=== PATIENT | female | born 1990 | race African-American/Black ===

== ENCOUNTER 2016-09-21 13:15 | Inpatient (IN) | payer OTHER ==
[2016-09-21] MEDS ORDERED: ELECTROLYTE-148 SOLN 1,000 ML IV SCH ×2 (13:40→14:10)
[2016-09-21] MEDS ORDERED: CITRIC ACID/SODIUM CITRATE 30 ML UNIT-DOSE CUP PO ONE (13:40)
[2016-09-21] MEDS ORDERED: ONDANSETRON 4 MG/2 ML VIAL IVPB PRN (14:03)
[2016-09-21 14:13] VITALS: BMI 26.2
[2016-09-21] MEDS ORDERED: DEXTROSE 5%-LACTATED RINGERS 1,000 ML IV SCH (14:30)
--- NOTE | 2016-09-21 14:40 | HP ---
Past Medical History - Primary Care Physician PCP:: Lanre Flanagan - Admission Chief Complaint: 26yo P1 with at EGA 39w2d and previous C/S admitted for repeat C/S History of Present Illness: Prior C/S Uncomplicated GBS negative History Source: Patient, Medical Record Limitations to Obtaining History: No Limitations - Past Medical History PLANT SENIOR MANAGER: No: Alzheimer's, CVA, Dementia, Migraine, Multiple Sclerosis, Peripheral Neuropathy, Parkinson's, Seizure, Syncope, TIA, Vertigo, Other Cardiovascular: No: AFIB, Aneurysm, Aortic Insufficiency, Aortic Stenosis, CAD, CHF, Deep Vein Thrombosis, HTN, Hyperlipdemia, SD, Mitral Insufficiency, Mitral Stenosis, Murmur, Pulmonary Hypertension, Other Pulmonary: No: Asthma, Bronchitis, Cancer, COPD, O2 Dependent, Pneumonia, Previously Intubated, Pulmonary Embolus, Pulmonary Fibrosis, Sleep Apnea, Other Gastrointestinal: No: Ascites, Cancer, Constipation, Crohn's Disease, Diverticulitis, Diverticulosis, Esophageal Varices, Gastritis, GERD, GI Bleed, Hemorrhoids, Hiatal Hernia, Inflamatory Bowel Disease, Irritable Bowel Disease, Pancreatitis, Peptic Ulcer Disease, Ulcerative Colitis, Other Hepatobiliary: No: Cirrhosis, Cholelithiasis, Cholecystitis, Choledocholithiasis , Hepatitis A, Hepatitis B, Hepatitis C, Other Renal/: No: Renal Failure, Renal Inusuff, BPH, Cancer, Hematuria, Hemodialysis , Neurogenic Bladder, Renal Calculi, UTI, Other Reproductive: No: Ectopic , Endometriosis, Fibroids, PID, Polycystic Ovary Syndrome, Postmenopausal, Other ...: 2 ...Para: 1 ...Term: 1 ...LMP: 01/01/16 ...EDC by Eligio: 09/26/16 Heme/Onc: No: Anemia, B12 Deficiency, Bleeding Disorder, Cancer, Current Chemotherapy, Current Radiation Therapy, Hemochromatosis, Hypercoaguable State, Myeloproliferative Synd, Sickle Cell Disease, Sickle Cell Trait, Thrombocytopenia, Other Infectious Disease: No: AIDS, C-Diff, Herpes Zoster, HIV, MRSA, STD's, Tuberculosis, VREF, Other Psych: No: Addictions, Anxiety, Bipolar, Depression, Panic, Psychosis, Schizophrenia, Other Musculoskeletal: No: Bursitis, Chronic low back pain, Hemiparesis, Hemiplegia, Osteoarthritis, Paraplegia, Other Rheumatology: No: Fibromyalgia, Gout, Lupus, Rheumatoid Arthritis, Sarcoidosis, Vasculitis, Other ENT: No: Allergic Rhinitis, Sinusitis, Other Endocrine: No: Mora's Disease, Cazadero's Disease, Diabetes Insipidus, Diabetes Mellitus, Hyperparathyroidism, Hyperthyroidism, Hypothyroidism, Osteopenia, SIADH, Other Dermatology: No: Basal Cell, Cellulitis, Eczema, Melanoma, Psoriasis, Squamous Cell, Other - Past Surgical History Past Surgical History: Yes: Hx Myomectomy: No Hx Transabdominal Cerclage: No - Smoking History Smoking history: Never smoked - Alcohol/Substance Use Hx Alcohol Use: No History of Substance Use: reports: None - Social History Usual Living Arrangement: Yes: With Significant Other, With Child ADL: Independent History of Recent Travel: No Home Medications - Allergies Allergies/Adverse Reactions: Allergies Allergy/AdvReac Type Severity Reaction Status Date / Time No Known Allergies Allergy Verified 09/21/16 13:41 - Home Medications Home Medications: Ambulatory Orders NK [No Known Home Medication] 09/21/16 Family Disease History - Family Disease History Family History: Denies Review of Systems - Review of Systems Constitutional: reports: No Symptoms Eyes: reports: No Symptoms HENT: reports: No Symptoms Neck: reports: No Symptoms Cardiovascular: reports: No Symptoms Respiratory: reports: No Symptoms Gastrointestinal: reports: No Symptoms Genitourinary: reports: No Symptoms Breasts: reports: No Symptoms Reported Musculoskeletal: reports: No Symptoms Integumentary: reports: No Symptoms Neurological: reports: No Symptoms Endocrine: reports: No Symptoms Hematology/Lymphatic: reports: No Symptoms Psychiatric: reports: No Symptoms Pain Intensity: 0 Physical Exam - Maternity Vital Signs: Vital Signs Temperature 98.5 F 09/21/16 14:03 Pulse Rate 83 09/21/16 14:03 Respiratory Rate 20 09/21/16 14:03 Blood Pressure 128/64 09/21/16 14:03 O2 Sat by Pulse Oximetry (%) Constitutional: Yes: Well Nourished, No Distress, Calm Eyes: Yes: WNL, Conjunctiva Clear HENT: Yes: WNL, Atraumatic, Normocephalic Neck: Yes: WNL, Supple, Trachea Midline Cardiovascular: Yes: WNL, Regular Rate and Rhythm Lungs: Clear to auscultation, Normal air movement Breast(s): Yes: WNL - Abdominal Exam/OB Fundal Height: 38 Number of Fetuses: Single Presentation: Vertex Contractions: Yes Regularity: Irritability Intensity: Unaware Monitor Mode: External Heart Rate (range): 130 Heart Rate Location: Midline Category: I Accelerations: None - Vaginal Exam/OB Vaginal Bleediing: No Speculum Exam: No Presentation: Vertex/Position - Physical Exam Musculoskeletal: Yes: WNL Extremities: Yes: WNL Edema: No Integumentary: Yes: WNL Deep Tendon Reflex Grade: Normal +2 ...Motor Strength: WNL Psychiatric: Yes: WNL, Alert, Oriented Hemorrhage Risk Assessment - Risk Factors Medium Risk Factors: Yes: Prior , uterine surgery,or multiple laparotomies, None High Risk Factors: Yes: None Risk Score: 2 Risk Level: High Risk Imaging - Results Ultrasound: Report Reviewed Assessment/Plan 26yo P1 admitted for repeat C/S. We discussed the risks and benefits of C/S at length, including but not limited to scarring, pain, bleeding, infection, injury to underlying organs and structures, need for additional surgery to repair/treat any problems or complications, complications/injuries, etc. The pt verbalized her understanding and requested to proceed with surgery.
[2016-09-21] MEDS ORDERED: TUBERCULIN PPD 5 TU/0.1ML SYRINGE (IN PATIENT USE ONLY) ID ONE (15:00)
[2016-09-21 15:43] LABS: ARTERIAL BLD GAS O2 SATURATION 30.2 % (90-98.9); ARTERIAL BLOOD GAS BASE EXCESS -0.8 meq/l (-2-2); ARTERIAL BLOOD GAS pH 7.33 (7.35-7.45)
[2016-09-21 15:44] LABS: ARTERIAL BLD GAS O2 SATURATION 19.2 % (90-98.9); ARTERIAL BLOOD GAS BASE EXCESS -1.7 meq/l (-2-2); ARTERIAL BLOOD GAS HCO3 25.6 meq/L (22-26); ARTERIAL BLOOD GAS pH 7.27 (7.35-7.45)
[2016-09-21 15:46] LABS: LPM/O2% 21; PT. ON O2? NO; TYPE OF O2 ROOM AIR
[2016-09-21 15:48] LABS: ARTERIAL BLOOD GAS PO2 17.7 mmHg (80-100)
[2016-09-21 15:49] LABS: PT. ON O2? NO
[2016-09-21 15:50] LABS: LPM/O2% 21; TYPE OF O2 ROOM AIR
[2016-09-21] MEDS ORDERED: BENZOCAINE 28 GM HEMORRHOIDAL OINTMENT TP PRN (16:01)
[2016-09-21] MEDS ORDERED: BENZOCAINE 20% 57 GM BOTTLE TP PRN (16:01)
[2016-09-21] MEDS ORDERED: METHYLERGONOVINE MALEATE 0.2 MG/1 ML AMP IM PRN (16:01)
[2016-09-21] MEDS ORDERED: WITCH HAZEL 50% (TUCKS) 40 PAD/JAR PAD TP PRN (16:01)
[2016-09-21] MEDS ORDERED: IBUPROFEN 600 MG TABLET (FP) PO PRN (16:01)
--- NOTE | 2016-09-21 16:07 | OP ---
Operative Note - Note: Operative Date: 09/21/16 Pre-Operative Diagnosis: at EGA 39w2d. Prior C/S Operation: Repeat LT C/S Findings: live baby boy in vtx presentation, no meconium in amniotic fluids. 7 and 9. Normal uterus tubes, and ovaries. Post-Operative Diagnosis: Same as Pre-op Surgeon: Lanre Flanagan Jumpbasting Facing Baster: Hilary Melgar Anesthesiologist/COMMUNITY REINVESTMENT ACT OFFICER: Kate Napier Anesthesia: Spinal Specimens Removed: Placenta, keloid scar Estimated Blood Loss (mls): 700 Drains & Tubes with Location: Sebastian Cath Drains, Volume Out (mls): 600 Blood Volume Replaced (mls): 0 Fluid Volume Replaced (mls): 2,000 Operative Report Dictated: Yes
[2016-09-21] MEDS: IBUPROFEN 800 MG/8 ML IJ IVPB PRN (16:53)
[2016-09-21] MEDS ORDERED: D5W-LR W/ 20 UNITS OXYTOCIN 1,000 ML IV SCH (17:30)
[2016-09-22] MEDS: IBUPROFEN 800 MG/8 ML IJ IVPB PRN (06:20)
[2016-09-22 09:00] LABS: BASOPHIL 0.3 % (0-2.0); EOSINOPHIL 1.4 % (0-4.5); MCH 31.3 pg (25.7-33.7); MCHC 34.6 g/dl (32.0-36.0); MEAN CELL VOLUME 90.5 fl (80-96); MEAN PLT VOLUME 8.4 fl (7.5-11.1); PLATELET COUNT 282 K/MM3 (134-434); RDW 12.6 % (11.6-15.6); WHITE BLOOD COUNT 11.9 K/mm3 (4.0-10.0)
--- NOTE | 2016-09-22 09:47 | PN ---
Post Progress Note - Subjective Subjective: Patient without acute complaints. Reports tolerating clears without nausea or vomiting. To chair this AM dom JESUS'd, no voiding yet Desires to breastfeed No flatus yet Post Day: 1 Type of Delivery: Repeat C/S Vital Signs: Vital Signs Temperature 98.8 F 09/22/16 08:00 Pulse Rate 66 09/22/16 08:00 Respiratory Rate 18 09/22/16 08:00 Blood Pressure 115/74 09/22/16 08:00 O2 Sat by Pulse Oximetry (%) Breast Exam: Yes: Engorged Uterus: Yes: Fundus Firm, Fundus below umbilicus Incision: Yes: Dressing dry and intact Abdomen/GI: Yes: Abdomen soft, Tolerating PO. No: Tender, Passing flatus Lochia: Yes: Serosa Lochia, amount: Moderate Extremities: Yes: Calves non-tender. No: Edema Activity: Ambulating - Labs Labs: CBC WBC 11.9 K/mm3 (4.0-10.0) H D 09/22/16 08:00 RBC 3.45 M/mm3 (3.60-5.2) L 09/22/16 08:00 Hgb 10.8 GM/dL (10.7-15.3) 09/22/16 08:00 Hct 31.3 % (32.4-45.2) L 09/22/16 08:00 MCV 90.5 fl (80-96) 09/22/16 08:00 MCH 31.3 pg (25.7-33.7) 09/22/16 08:00 MCHC 34.6 g/dl (32.0-36.0) 09/22/16 08:00 RDW 12.6 % (11.6-15.6) 09/22/16 08:00 Plt Count 282 K/MM3 (134-434) 09/22/16 08:00 MPV 8.4 fl (7.5-11.1) 09/22/16 08:00 Neutrophils % 80.0 % (42.8-82.8) 09/22/16 08:00 Lymphocytes % 8.2 % (8-40) D 09/22/16 08:00 Monocytes % 10.1 % (3.8-10.2) 09/22/16 08:00 Eosinophils % 1.4 % (0-4.5) 09/22/16 08:00 Basophils % 0.3 % (0-2.0) 09/22/16 08:00 Assessment/Plan 26 yo POD # 1 s/p repeat CD, afebrile, vital signs stable, doing well 1. Continue routine postoperative care. 2. AM CBC stable 3. Rh positive status, no rhogam indicated. 4. Encourage ambulation and incentive spirometer use 5. Continue oral pain medication 6. Anticipate discharge home postoperative day #3 or #4
--- NOTE | 2016-09-22 10:10 | OP ---
DATE OF OPERATION: 09/21/2016 PREOPERATIVE DIAGNOSIS: at estimated gestational age of 39 weeks and 2 days, previous section. POSTOPERATIVE DIAGNOSIS: at estimated gestational age of 39 weeks and 2 days, previous section, delivered. PROCEDURE: Repeat low transverse section via Pfannenstiel skin incision and revision of the old keloid scar. SURGEON: Lanre Flanagan MD ABORIGINAL EDUCATION TEACHER: Hilary Melgar MD ANESTHESIOLOGIST: Kate Napier MD ANESTHESIA: Spinal. COMPLICATIONS: None. ESTIMATED BLOOD LOSS: 700 mL URINE OUTPUT: 600 mL of clear urine at the end of the procedure. INTRAVENOUS FLUIDS: 2000 mL of crystalloids. PATHOLOGY: Keloid scar and placenta. FINDINGS: Live baby boy in vertex presentation. No meconium in amniotic fluid. Apgars are 7 and 9. Normal uterus, fallopian tubes, and ovaries. DESCRIPTION OF PROCEDURE: The patient was met preoperatively. Risks, benefits, and alternatives of surgery were discussed in details. All questions were answered. The patient was then brought to the OR with IV running. She was placed on the surgical table in the sitting position. The spinal anesthesia was achieved without difficulty. The patient was then placed in a supine position with a leftward tilt. She was prepped and draped in the usual sterile fashion. A Sebastian catheter was left to drain to gravity. The timeout procedure was conducted as per standard protocol. The surgeons then proceeded with the operation. The old Pfannenstiel scar was found to be keloid and was excised. The tissue was sent to Pathology for examination. The incision was then continued down to the level of fascia. The fascia was incised in the midline, and the incision was extended bilaterally using Dave scissors. The fascia was then dissected away from the rectus muscles using sharp and blunt dissection. The rectus muscles were in the midline using sharp dissection. The peritoneum was identified and entered sharply. The peritoneal incision was extended superiorly and inferiorly. The bladder peritoneum was dissected away from the lower uterine segment using sharp dissection. The bladder was then reflected downwards using a Belfour blade. The uterus was incised transversely in the lower uterine segment. The incision was extended bilaterally using bandage scissors. Some difficulty was encountered extricating the baby from the pelvis, and the vacuum was used to deliver the head. The vacuum application was checked and verified. The vacuum suction never exceeded the allowed limit. The baby's head was delivered easily, and the vacuum was detached. The shoulders and body were then delivered without complications. The baby was crying spontaneously and handed to the waiting plastic hospital products assembler. A segment of the umbilical cord was then secured for umbilical cord gases. The placenta was delivered manually and sent to Pathology. The uterus was exteriorized and cleared of all clots and debris. The uterine incision was repaired using a 0 Biosyn suture in a running locking stitch. Good hemostasis was noted. The uterine incision was then imbricated using a secondary layer of closure with 0 Biosyn suture. The uterus was then replaced back into the abdominal cavity. The gutters were cleared of clots and debris using moist laparotomy pads. The bladder peritoneum was approximated using a 0 Biosyn suture. The operative site was irrigated using copious amounts of normal saline. Once the saline was aspirated, good hemostasis was noted. The abdominal peritoneum was then closed using a 2-0 chromic suture. The rectus muscles were approximated using several interrupted 2-0 chromic sutures. The fascia was then closed using a 0 Vicryl suture in 2 segments. Good hemostasis and approximation were noted. The subcutaneous adipose tissues were reapproximated using several interrupted 0 chromic sutures. The skin was closed using a 4-0 Vicryl suture with a subcutaneous stitch. Sponge, lap, and needle counts were correct. The patient tolerated the procedure well and was transferred to recovery room in stable condition. Sergio [id number]
[2016-09-22] MEDS: PRENATAL VITAMINS W/ FOLIC ACID TABLET (FP) PO SCH (10:25)
[2016-09-22] MEDS: ACETAMINOPHEN 325 MG TABLET (FP) PO PRN ×2 (12:01→22:59)
[2016-09-22] MEDS: SIMETHICONE 80 MG TAB.CHEW (FP) PO PRN ×2 (12:01→16:08)
[2016-09-22] MEDS: IBUPROFEN 600 MG TABLET (FP) PO PRN ×3 (12:02→22:59)
[2016-09-22] MEDS ORDERED: BISACODYL 10 MG SUPP.RECT RC PRN (16:01)
[2016-09-23] MEDS: IBUPROFEN 600 MG TABLET (FP) PO PRN ×3 (04:08→21:26)
[2016-09-23] MEDS: oxyCODONE HCL 5 MG TABLET PO PRN ×3 (04:09→21:26)
--- NOTE | 2016-09-23 08:06 | PN ---
Progress Note (short form) - Note Progress Note: pod 2 doing well, ambulating, no excess vaginal bleeding CBC, BMP 09/22/16 08:00 Last Vital Signs Temp Pulse Resp BP Pulse Ox 98.6 F 76 18 117/75 09/22/16 21:52 09/22/16 21:52 09/22/16 21:52 09/22/16 21:52 abdomen soft, no distension, no cva, incision dry, clean no calf tenderness no excess vaginal bleeding plan ambulate, advance diet , cbc in am
[2016-09-23] MEDS: PRENATAL VITAMINS W/ FOLIC ACID TABLET (FP) PO SCH (09:57)
[2016-09-23] MEDS: SIMETHICONE 80 MG TAB.CHEW (FP) PO PRN ×2 (12:50→21:25)
[2016-09-23] MEDS: ACETAMINOPHEN 325 MG TABLET (FP) PO PRN (12:51)
--- NOTE | 2016-09-23 15:28 | PN ---
Progress Note (short form) - Note Progress Note: Anesthesia POD#1 S/P under Spinal and duramorph VSS,eating well,pain is controlled. Moving extremities well. Frances Arshad MD.
[2016-09-24] MEDS: oxyCODONE HCL 5 MG TABLET PO PRN (03:33)
[2016-09-24] MEDS: SIMETHICONE 80 MG TAB.CHEW (FP) PO PRN ×2 (03:34→11:30)
[2016-09-24] MEDS: IBUPROFEN 600 MG TABLET (FP) PO PRN ×2 (03:35→11:30)
[2016-09-24 07:17] LABS: BASOPHIL 1.1 % (0-2.0); EOSINOPHIL 3.5 % (0-4.5); MCH 31.6 pg (25.7-33.7); MCHC 35.1 g/dl (32.0-36.0); MEAN PLT VOLUME 8.3 fl (7.5-11.1); NEUTROPHILS 62.4 % (42.8-82.8); PLATELET COUNT 290 K/MM3 (134-434); RDW 12.8 % (11.6-15.6); WHITE BLOOD COUNT 8.4 K/mm3 (4.0-10.0)
--- NOTE | 2016-09-24 11:12 | PN ---
Progress Note (short form) - Note Progress Note: pod 3doing well, has mild cramps CBC, BMP 09/24/16 06:00 Last Vital Signs Temp Pulse Resp BP Pulse Ox 99.2 F 72 18 126/86 09/23/16 21:49 09/23/16 21:49 09/23/16 21:49 09/23/16 21:49 abdomen soft, no distension, , no cva incision dry,, clean no calf tenderness lochia mild plan ambulate, pain management . d/c home in am
[2016-09-24] MEDS: ACETAMINOPHEN 325 MG TABLET (FP) PO PRN (11:29)
[2016-09-24] MEDS: PRENATAL VITAMINS W/ FOLIC ACID TABLET (FP) PO SCH (11:29)
--- NOTE | 2016-09-24 11:54 | DS ---
Physical Exam-SEMICONDUCTOR ENGINEER Vital Signs: Vital Signs Temperature 99.2 F 09/23/16 21:49 Pulse Rate 72 09/23/16 21:49 Respiratory Rate 18 09/23/16 21:49 Blood Pressure 126/86 09/23/16 21:49 O2 Sat by Pulse Oximetry (%) Constitutional: Yes: Well Nourished, No Distress, Calm Eyes: Yes: WNL, Conjunctiva Clear, EOM Intact HENT: Yes: WNL, Atraumatic, Normocephalic Neck: Yes: WNL, Supple, Trachea Midline Cardiovascular: Yes: WNL, Regular Rate and Rhythm Respiratory: Yes: WNL, Regular, CTA Bilaterally Gastrointestinal: Yes: WNL ...Rectal Exam: Yes: WNL Renal/: Yes: WNL ....Post : Yes: Uterus firm, Uterus non-tender, Slight lochia rubra Breast(s): Yes: WNL Musculoskeletal: Yes: WNL Extremities: Yes: WNL Edema: LLE: Trace, RLE: Trace Integumentary: Yes: WNL Wound/Incision: Yes: Clean/Dry, Well Approximated, Sutures Intact, Steri Strips Neurological: Yes: WNL, Alert, Oriented ...Motor Strength: WNL Psychiatric: Yes: WNL, Alert, Oriented Labs: CBC, BMP 09/24/16 06:00 Delivery - Delivery Section: Repeat Type of Anesthesia: Spinal Episiotomy/Laceration: None EBL (cc): 700 Delivery, Single - Stages of Labor Date of Delivery: 09/21/16 Time of Delivery: 15:13 Time Placenta Delivered: 15:15 Placenta: Yes: Expressed - Condition of Brush Holder Assembler/Dough Sheeter Present: Yes Name: Sonu Contreras Gender: Male Weight: 7 lb 2 oz Position: Left, OT Total Hours ROM (Hrs/Mins): 1min. - 1 Minute Total Score: 7 5 Minutes Total Score: 9 - [place] Feeding Plan Initial Plan: Elected not to breastfeed exclusively throughout hospitalization Discharge Summary Reason For Visit: C SECTION Hospital Course: uneventful Condition: Good - Instructions Diet, Activity, Other Instructions: regular diet Referrals: Lanre Flanagan MD [Staff Physician] - - Home Medications Comprehensive Discharge Medication List: Ambulatory Orders Ibuprofen [Motrin -] 600 mg PO QID #28 tablet 09/22/16
[2016-09-24 15:55] VITALS: BP 122/67; PULSE 76; TEMP 98.1
--- NOTE | 2016-09-26 15:14 | PATH ---
Surgical Pathology Report Patient Name: KEITH VERA Med. Rec. #: [id number] /Age/Gender: 1990 (Age: 26) / F Account: [id number] Location: [facility] OBS/HELP DESK ENGINEER Taken: 09/21/2016 Received: 09/22/2016 Reported: 09/26/2016 Physicians: Lanre Flanagan M.D. Specimen(s) Received A: PLACENTA B: SCAR TISSUE Clinical History , c/section 09. Final Diagnosis A. PLACENTA, DELIVERY: FOCALLY DISRUPTED THIRD TRIMESTER PLACENTA WITH MODERATE PRECHORIONIC FIBRIN DEPOSITION, THREE VESSEL UMBILICAL CORD, AND PLACENTAL MEMBRANES WITH AMNION HYPERPLASIA. B. SCAR TISSUE, EXCISION: SKI N WITH HYPERTROPHIC DERMAL SCAR. Electronically Signed Edwin Green M.D. Gross Description A. The specimen is received fresh, labeled "placenta" and is a 456 gram, 17.0 x 14.5 x 2.7 cm placenta with attached membranes and umbilical cord. The attached membranes are santiago, translucent focal opacities and insert marginally. The umbilical cord measures 14 cm in length and averages 1.3 cm in diameter. The cord inserts eccentrically, 2 cm to the nearest margin. No true knots or strictures are identified. Cut surface of the umbilical cord reveals 3 vessels. The surface is juarez-blue with fibrin deposition and appropriate caliber vessels. The maternal surface is red-brown with focal defects. Sectioning reveals red-brown, spongy parenchyma. No focal lesions are identified. Radio News Writer sections are submitted in three cassettes as follows: 1- membrane rolls and umbilical cord; 2-3- full thickness sections of placenta. B. Received fresh labeled "scar tissue" is a 9.5 x 5.0 cm brown, elongated portion of skin excised to a depth of 0.6 cm. The epidermal surface displays a central, linear, well-healed scar. Radio News Writer sections are submitted in one cassette. 09/23/201609/23/2016
== END 2016-09-24 14:20 | disposition home or self-care (01) | DRG 540 ==
LOC: JLDR 13:15 → J3W 17:33
PROVIDERS: ADMIT Obstetrics & Gynecology; ATTEND Obstetrics & Gynecology
PROC: 10D00Z1 Extraction of Products of Conception, Low, Open Approach (ICD-10-PCS; principal; 2016-09-21)
DX: O34.211 Maternal care for low transverse scar from previous cesarean delivery (principal); Z3A.39 39 weeks gestation of pregnancy; Z37.0 Single live birth
CPT/HCPCS: 36415; 36600; 82803; 85025; 88304-TC; 88307-TC